=== PATIENT | female | born 2000 | race Caucasian/White ===

== ENCOUNTER 2024-07-09 07:17 | Emergency (ER) | payer BC, SELFPAY ==
[2024-07-09 07:27] VITALS: BP 105/61
[2024-07-09 07:56] LABS: % Eosinophils 1.1 % (0-6); % Immature Granulocytes 0.3 % (0-0.5); % Lymphocytes 16.3 % (20.5-51.1); % Monocytes 4.8 % (1.7-9.3); % Neutrophils 76.5 % (42.2-75.2); Absolute Basophils 0.1 10^3/uL (0-0.2); Absolute Eosinophils 0.1 10^3/uL (0-0.7); Absolute Lymphocytes 2.1 10^3/uL (1.2-3.4); Absolute Monocytes 0.6 10^3/uL (0.1-0.6); Absolute Neutrophils 9.7 10^3/uL (1.4-6.5); Hematocrit 36.6 % (37.0-47.0); Hemoglobin 12.4 g/dL (12.0-16.0); Mean Corp Hgb Conc. 33.9 g/dL (33.0-37.0); Mean Corpuscular Hgb 30.4 pg (27.0-31.0); Mean Corpuscular Volume 89.7 fL (81.0-99.0); Mean Platelet Volume 9.9 fL (7.4-10.4); Nucleated Red Blood Cells % 0 %; Platelet Count 233 10^3/uL (130-400); Red Blood Cell Count 4.08 10^6/uL (4.20-5.40); Red Cell Dist. Width 13.2 % (11.5-14.5); White Blood Cell Count 12.6 10^3/uL (4.8-10.8)
[2024-07-09 08:09] LABS: ALT (SGPT) 16 U/L (0-35); AST (SGOT) 31 U/L (14-36); Albumin 4.1 g/dl (3.5-5.0); Alkaline Phosphatase 43 U/L (38-126); Blood Urea Nitrogen 21 mg/dl (7-17); Calcium 9.5 mg/dl (8.4-10.2); Carbon Dioxide 26 mmol/L (22-30); Chloride 108 mmol/L (98-107); Glucose 113 mg/dl (70-99); Potassium 4.6 mmol/L (3.5-5.1); Sodium 142 mmol/L (135-145); Total Bilirubin 0.5 mg/dl (0.2-1.3); Total Protein 6.7 g/dl (6.3-8.2); eGFR > 60.00
--- NOTE | 2024-07-09 08:11 | ED.GENMED ---
History of Present Illness
General
Chief Complaint: Rectal Bleeding
Time Seen by Provider: 07/09/24 08:10
History of Present Illness
History of Present Illness:
Patient is a 24-year-old woman presenting to the emergency department rectal bleeding. Patient states that she woke up at 5 in the morning with a few episodes of diarrhea. She was under the diarrhea she had some blood streaked with it. Since then
the diarrhea has stopped the patient has had few episodes of bright red blood per rectum. Mild abdominal pain when the bleeding occurs. Some nausea but no vomiting. No recent travel antibiotics or new foods. Nobody is sick with similar symptoms
at home. No personal or family history of IBD or gut issues. No history of bleeding disorders. No fevers or or chills. This is never happened to her before. She has never seen GI before.
Past History
Past History
ED Past Medical History: Other (UTI)
ED Past Surgical History: None
Social History
Tobacco: Non-smoker
Alcohol: Occasional
Personal: Single
Living: with family
Phy Exam
Physical Exam
Physical Exam:
GENERAL: in no acute distress
HEENT: normocephalic, extraocular movements intact, moist oral mucosa
NECK: normal inspection
RESPIRATORY: no respiratory distress, clear to auscultation bilaterally
CARDIOVASCULAR: regular rate and rhythm
ABDOMEN/: soft, non-distended, non-tender to palpation, no rebound or guarding
Rectal exam chaperoned by VICTORIANO Tucker: No gross blood in the vault, minimal brown stool that was Hemoccult positive, small external hemorrhoid
EXTREMITIES: non-tender, no edema/swelling
NEUROLOGIC: awake and alert, moves all extremities
SKIN: warm
Course
Orders/Labs/Results
Orders:
Orders
07/09/24 07:35
Type And Crossmatch [Type+Screen] Urgent
Complete Blood Count/With Diff Urgent
Comprehensive Metabolic Panel Urgent
07/09/24 08:29
0.9% Sodium Chloride 1000 ml [Nss] 1,000 ml IV BOLUS
07/09/24 08:39
Stool Culture Urgent
NICOLE Source: Feces/Stool
Specimen Description:
07/09/24 08:43
ABO2 Routine
BBK Wristband Number:
Associate notified that ABO2 has been ordered: [id number]
Date: 07/09/24
Time: 08:35
Sleeping Bag Filler ID: [id number]
07/09/24 09:47
Acetaminophen [Tylenol] 1,000 mg PO NOW STA
Abnormal Lab Results
07/09/24
07:35
WBC 12.6 H 10^3/uL
(4.8-10.8)
RBC 4.08 L 10^6/uL
(4.20-5.40)
Hct 36.6 L %
(37.0-47.0)
Absolute Neuts (auto) 9.7 H 10^3/uL
(1.4-6.5)
Neutrophils % 76.5 H %
(42.2-75.2)
Lymphocytes % 16.3 L %
(20.5-51.1)
Chloride 108 H mmol/L
(98-107)
BUN 21 H mg/dl
(7-17)
Glucose 113 H mg/dl
(70-99)
07/09/24 07:35
07/09/24 07:35
Vital Signs
Initial and Last Documented VS:
Initial Vital Signs
Temp Pulse Resp BP Pulse Ox
97.8 F 72 18 105/61 99
07/09/24 07:27 07/09/24 07:27 07/09/24 07:27 07/09/24 07:27 07/09/24 07:27
Last Documented Vital Signs
Temp Pulse Resp BP Pulse Ox
97.8 F 61 16 107/63 100
07/09/24 07:27 07/09/24 08:45 07/09/24 08:45 07/09/24 08:45 07/09/24 08:45
MDM/Problems Addressed
Differential Diagnosis Includes:
Patient is a 24-year-old woman presenting to the emergency department with diarrhea that turned bloody and then developed bright red blood per rectum. On arrival blood pressure was 105/61 and on exam patient with no gross blood in rectal vault.
Given patient's history and exam likely lower GI bleed. Could be enteritis versus diverticulitis versus hemorrhoids. Less likely to be IBD or malignancy. History and exam not consistent with mesenteric ischemia or life-threatening upper GI bleed.
Blood work obtained prior to my evaluation. Hemoglobin is 12.4. Otherwise LFTs are unremarkable. Will obtain stool culture. NOBLADS score is 1. After shared decision making we will give patient IV fluids and reassess. If patient with
continued bright red blood per rectum with symptoms patient will need admission for further monitoring of hemoglobin checks.
*Critical Care Note
Total Time (30-74mins, 75-104mins- exclusive of procedures): Not Applicable
Update Note
Update Note:
On reevaluation patient abdominal exam remains benign. He has had 2 small episodes of blood in her rectum. No clots. I did evaluate the blood and it is small droppings of blood about less than a teaspoon. Her blood pressure did improve with the
fluids to 111. We did discuss admission versus discharge and ultimately decided with discharge given stable hemoglobin and patient is hemodynamically stable.. Will give GI follow-up.
ED Attending Note
-
Portions of this chart may have been created with voice recognition software.� Occasional wrong word or��sound alike� substitutions may have occurred due to the inherent limitations of voice recognition software.
Discharge Plan
Departure
Patient Disposition: Home (Routine Discharge)
Date of Disposition: 07/09/24
Time of Disposition: 09:48
Patient with high blood pressure during this ER visit?: No
Discharge Problem:
Bloody stool, Bright red blood per rectum
Instructions: Bloody Stools, Adult (DC)
Prescriptions:
No Action
norgestimate-ethinyl estradiol [Sprintec (28)] 0.25-0.035 mg Tablet
1 tab PO DAILY@1200
Referrals:
Karen Pimentel MD [Active] - Call in 1-3 days for appt
Activity Restrictions/Additional Instructions:
You were seen in the Emergency Department today for bloody stools as well as bright red blood from your rectum. While you were here we performed blood work, which was reassuring.
We would like for you to follow up with your primary care physician for further evaluation. If you experience fever, worsening of your symptoms, or develop any other new or concerning symptoms, please return to the Emergency Department immediately.
Please see the attached sheet for additional information.
Interventions
Interventions:
*Risk Screen - Suicide Last Done: 07/09/24 07:27
*General Assessment Last Done: 07/09/24 07:27
*Neglect/Abuse Screening Last Done: 07/09/24 07:27
*ED- Fall Risk Assessment Last Done: 07/09/24 08:14
*ED COVID-19 Vaccine History Last Done: 07/09/24 07:34
FN-Gzharw-Gnspnybgrn Assessment Last Done: 07/09/24 08:15
ED- Cardiac Assessment Last Done: 07/09/24 08:15
ED- Pulmonary Assessment Last Done: 07/09/24 08:15
Discharge Date and Time
Print Language: GRENADIAN
[2024-07-09] MEDS: NSS 1000 IV (08:43)
[2024-07-09 08:45] VITALS: BP 107/63
[2024-07-09] MEDS: TYLENOL 1000 MG PO (09:49)
[2024-07-09 09:51] VITALS: BP 111/57
== END 2024-07-09 10:06 | disposition home or self-care (01) ==
LOC: EMR 07:17
PROVIDERS: EMERGENCY PHYSICIAN Student in an Organized Health Care Education/Training Program; FAMILY PHYSICIAN Family Medicine
DX: K92.1 Melena (principal); K62.5 Hemorrhage of anus and rectum; R10.9 Unspecified abdominal pain; R11.0 Nausea; Z87.440 Personal history of urinary (tract) infections; Z88.1 Allergy status to other antibiotic agents
CPT/HCPCS: 99284; 96360; 80053; 85025; 86850; 86900; 86901